=== PATIENT | male | born 1975 | race Caucasian/White ===

== ENCOUNTER 2019-09-25 10:44 | Emergency (ER) | payer MEDICARE, OTHER ==
[~2019-09-25] VITALS: Ht 177.8 cm; Wt 88.5 kg
[~2019-09-25 10:44] MED LIST: ADULT TUSS100 MG/5 M PO; ATIVAN1 MG PO; ATIVAN2 MG PO; ATROPINE 0.01%-10 ML OS; COLACE100 MG PO; DEPAKOTE ER500 MG PO; DUCODYL5 MG PO; FISH OIL 1,2001 EAC2 PO; IBUPROFEN400 MG PO; LINZESS145 MCG PO; LITHIUM CARBON300 M1 PO; LOSARTAN POTASS50 MG; MYLANTA LIQ355 ML PO; NORCO 5-325 TA1 EACH PO; OFLOXACIN5 ML OS; OLANZAPINE10 MG PO; POLYETHYLENE GL17 GM; REQUIP1 MG PO; SENNA8.6 MG PO; TYLENOL 8 HOUR650 MG PO; VITAMIN D-32000 UNIT PO; ZYPREXA5 MG PO
--- OUTSIDE RECORDS SUMMARY | 2019-09-25 10:48 | XMS ---
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 [facility] has no Care Guidelines for this patient. Sarath VISIT COUNT (12 MO.) 1 PARDEEP Prabhakar TOTAL 1 NOTE: Visits indicate total known visits. ED/UCC VISIT TRACKING (12 MO.) 09/25/2019 10:46 PARDEEP [facility] [place] TYPE: Emergency COMPLAINT: - PARTIA FALL INPATIENT VISIT TRACKING (12 MO.) No inpatient visits to display in this time frame [id number]
[2019-09-25] MEDS ORDERED: AMANTADINE100 M1 PO (11:05)
[2019-09-25] MEDS ORDERED: LEVOCETIRIZINE D5 MG PO (11:05)
[2019-09-25] MEDS ORDERED: LITHIUM CARBON300 M2 PO (11:09)
[2019-09-25] MEDS ORDERED: OLANZAPINE10 MG PO (11:10)
[2019-09-25] MEDS ORDERED: LOSARTAN POTASS25 MG PO (11:10)
[2019-09-25] MEDS ORDERED: OXCARBAZEPINE600 MG PO (11:10)
[2019-09-25] MEDS ORDERED: PENICILLIN V P500 MG PO (11:13)
== END 2019-09-25 11:45 | disposition home or self-care (01) ==
LOC: ED 10:44
DX: R42 Dizziness and giddiness (principal); K04.7 Periapical abscess without sinus; F32.9 Major depressive disorder, single episode, unspecified; F41.9 Anxiety disorder, unspecified; Z79.899 Other long term (current) drug therapy
CPT/HCPCS: 99283

== ENCOUNTER 2021-07-29 17:51 | Emergency (ER) | payer MEDICARE, OTHER ==
[~2021-07-29] VITALS: Ht 177.8 cm; Wt 88.5 kg
[~2021-07-29 17:51] MED LIST changes: +AMANTADINE100 M1 PO; +LEVOCETIRIZINE D5 MG PO; +LITHIUM CARBON300 M2 PO; +LOSARTAN POTASS25 MG PO; +OXCARBAZEPINE600 MG PO; +PENICILLIN V P500 MG PO
--- OUTSIDE RECORDS SUMMARY | 2021-07-29 17:54 | XMS ---
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 E.Bertha VISIT COUNT (12 MO.) 1 PARDEEP Prabhakar TOTAL 1 NOTE: Visits indicate total known visits. ED/UCC VISIT TRACKING (12 MO.) 07/29/2021 17:52 PARDEEP [facility] [place] TYPE: Emergency COMPLAINT: - CHOCKING EPISODE INPATIENT VISIT TRACKING (12 MO.) No inpatient visits to display in this time frame [id number]
[2021-07-29] MEDS ORDERED: INVEGA3 MG PO (18:14)
[2021-07-29] MEDS ORDERED: MELATONIN5 M2 PO (18:15)
[2021-07-29] MEDS ORDERED: NYSTATIN15 G1 TOP (18:17)
== END 2021-07-29 18:22 | disposition home or self-care (01) ==
LOC: ED 17:51
DX: T17.928A Food in respiratory tract, part unspecified causing other injury, initial encounter (principal); H54.61 Unqualified visual loss, right eye, normal vision left eye; Z79.899 Other long term (current) drug therapy
CPT/HCPCS: 99283

== ENCOUNTER 2021-08-25 05:44 | Day surgery (SDC) | payer MEDICARE, OTHER ==
[~2021-08-25] VITALS: Ht 177.8 cm; Wt 109.1 kg
[~2021-08-25 05:44] MED LIST changes: +GAVILAX8.5 GM PO; +INVEGA3 MG PO; +MELATONIN5 M2 PO; +NYSTATIN15 G1 TOP
[2021-08-25] MEDS ORDERED: MELATONIN5 M2 PO (06:15)
[2021-08-25] MEDS ORDERED: HYDROCODON-ACE1 EA10 PO (11:55)
== END 2021-08-25 12:26 | disposition home or self-care (01) ==
LOC: DS 05:44 → OPS 05:44 → DS 06:45 → OPS 12:26 → DS 09-01 06:45
PROVIDERS: ATTEND Dentist General Practice
PROC: 0CDXXZ1 Extraction of Lower Tooth, Multiple, External Approach (ICD-10-PCS; 2021-08-25)
PROC: 0CRXXJ1 Replacement of Lower Tooth, Multiple, with Synthetic Substitute, External Approach (ICD-10-PCS; principal; 2021-08-25 06:45)
DX: K04.7 Periapical abscess without sinus (principal); K02.9 Dental caries, unspecified; I10 Essential (primary) hypertension; F71 Moderate intellectual disabilities
CPT/HCPCS: 00170; 70320; J0330; J0461; J1100; J1885; J2250; J2405; J2704; J2765; J3010; J7121